=== PATIENT | female | born 1980 | race Caucasian/White ===

== ENCOUNTER → 2017-01-12 | Outpatient (CLI) | payer MEDICAID | LOC: FIMAGING 14:46 | PROVIDERS: ATTEND Psychiatry & Neurology Neurology | DX: R56.9 Unspecified convulsions (principal) ==

== ENCOUNTER → 2017-01-19 | Outpatient (CLI) | payer MEDICAID ==
--- NOTE | 2017-01-22 12:27 | CPEEG ---
[f rep st] ELECTROENCEPHALOGRAM 4-HOUR VIDEO EEG. DATE OF STUDY: 01/19/2017 DATE OF INTERPRETATION: 01/22/2017. INTERPRETATION: This 4-hour video EEG recording is essentially normal. There were no potentially epileptogenic abnormalities present during the awake or sleep recordings. There was prominent beta frequency activity in the background. This can be a physiologic normal variant or related to medication effect. The patient had some body jerks and twitches during the video EEG recording without EEG correlate. These findings would be consistent with nonepileptic movements. REPORT: This 4-hour video EEG contains 9 Hz alpha activity to the posterior head regions. There was prominent beta frequency activity over the frontocentral head regions. This can be physiologic or related to medication effect. There was no abnormal activation at rest, during photic stimulation or hyperventilation. The patient fell asleep during the study. There was no abnormal activation during sleep or during times of arousal. During sleep, the patient had occasional myoclonic type jerks of the extremities and axial musculature. There was no abnormal EEG correlate with these movements. There were no other clinical events recorded during the video EEG monitoring session. /[id number]/MODL MTDD
== END ==
LOC: FCPNEURO 08:01
PROVIDERS: ATTEND Psychiatry & Neurology Neurology
DX: R56.9 Unspecified convulsions (principal)